=== PATIENT | male | born 1955 | race African-American/Black ===

== ENCOUNTER 2017-02-04 15:29 | Inpatient (IN) | payer OTHER ==
[2017-02-04 17:02] VITALS: BMI 25.5
[2017-02-04] MEDS ORDERED: MENTHOL/PHENOL 1 EACH UD MM PRN (17:35)
[2017-02-04] MEDS ORDERED: MAGNESIUM HYDROX 2400MG/30ML ORAL SUSPENSION 30 ML CUP PO PRN (17:35)
[2017-02-04] MEDS ORDERED: hydrOXYzine PAMOATE 50 MG CAPSULE (FP) PO PRN (17:35)
[2017-02-04] MEDS ORDERED: NICOTINE POLACRILEX 4 MG GUM BC PRN (17:35)
[2017-02-04] MEDS ORDERED: guaiFENesin/D-METHORPHAN HB 10 ML UNIT-DOSE CUPS PO PRN (17:35)
[2017-02-04] MEDS ORDERED: MAGNESIUM CITRATE 300 ML BOTTLE PO PRN (17:35)
[2017-02-04] MEDS ORDERED: chlordiazePOXIDE HCL 25 MG CAPSULE PO ONE (17:35)
[2017-02-04] MEDS ORDERED: LOPERAMIDE HCL 2 MG CAPSULE PO PRN (17:35)
[2017-02-04] MEDS ORDERED: chlordiazePOXIDE HCL 25 MG CAPSULE PO PRN (17:35)
[2017-02-04] MEDS ORDERED: P-EPHED 60MG/TRIPROLIDI 2.5MG TABLET PO PRN (17:35)
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
[2017-02-04] MEDS: NICOTINE 21 MG/24 HOURS TOPICAL PATCH TD SCH (18:46)
[2017-02-04] MEDS: ACETAMINOPHEN 325 MG TABLET (FP) PO PRN (19:12)
[2017-02-04] MEDS: CLOTRIMAZOLE 1% CREAM 15 GM TUBE TP SCH (22:03)
[2017-02-04] MEDS: chlordiazePOXIDE HCL 25 MG CAPSULE PO SCH (22:04)
[2017-02-04] MEDS: MAG HYDROX/AL HYDROX/SIMETH 30 ML UNIT-DOSE CUP PO PRN (22:04)
[2017-02-04] MEDS: THIAMINE HCL 100 MG TABLET (FP) PO SCH (22:04)
[2017-02-04 23:14] LABS: URINE APPEARANCE CLEAR; URINE BILIRUBIN NEGATIVE (NEGATIVE); URINE BLOOD NEGATIVE (NEGATIVE); URINE COLOR LTYELLOW; URINE GLUCOSE (UA) NEGATIVE (NEGATIVE); URINE KETONE NEGATIVE (NEGATIVE); URINE LEUK ESTERASE NEGATIVE (NEGATIVE); URINE NITRITE NEGATIVE (NEGATIVE); URINE PROTEIN NEGATIVE (NEGATIVE); URINE UROBILINOGEN NEGATIVE mg/dL (0.2-1.0)
[2017-02-04] MEDS: diphenhydrAMINE HCL 50 MG CAPSULE PO PRN (23:49)
[2017-02-05] MEDS: chlordiazePOXIDE HCL 25 MG CAPSULE PO SCH ×4 (05:22→22:03)
[2017-02-05] MEDS ORDERED: METHADONE HCL 10 MG TABLET PO SCH (07:45)
[2017-02-05] MEDS ORDERED: METHADONE HCL 10 MG TABLET ONE (07:54)
[2017-02-05] MEDS ORDERED: METHADONE HCL 40 MG DISPERSABLE TABLET ONE (07:54)
[2017-02-05] MEDS: METHADONE 40 MG, METHADONE 30 MG PO SCH (07:55)
[2017-02-05] MEDS: TAMSULOSIN HCL 0.4 MG CAP.ER.24H (FP) PO SCH (08:55)
--- NOTE | 2017-02-05 09:38 | CONSULT ---
[facility] Psychiatric Consult - Data Date of interview: 02/05/17 Admission source: [facility] Identifying data: This is 61 years old male with no psychiatric hospitalization history intoxicated with: Alcohol, Xanax, Cocaine, Nicotine, Methadone Substance Abuse History: - Smoking Cessation. Smoking history: Current every day smoker. Have you smoked in the past 12 months: Yes. Aproximately how many cigarettes per day: 20. Hx Chewing Tobacco Use: No. Initiated information on smoking cessation: Yes. 'Breaking Loose' booklet given: 02/04/17. - Substance & Tx. History. Hx Alcohol Use: Yes. Hx Substance Use: Yes. Substance Use Type : Alcohol, Cocaine, Heroin, Opiates, Prescribed, Tranquilizers. Hx Substance Use Treatment: Yes (MMTP, detoxification [facility] 6 months ago). - Substances Abused. Alprazolam (Xanax). Route: Oral. Frequency: Daily. Amount used: 6-8MG. Age of first use: 32. Date of Last Use: 02/03/17. Alcohol. Route: Oral. Frequency: Daily. Amount used: 1-2 PINTS VODKA. Age of first use: 21. Date of Last Use: 02/04/17. Cocaine. Route: Inhalation. Frequency: 3-6 times per week. Amount used: 1/2 GRAM. Age of first use: 24. Date of Last Use: 01/30/17. Heroin. Route: Inhalation. Frequency: Daily. Age of first use: 22. Date of Last Use: 02/04/17 Medical History: GERD, HepC+, Psychiatric History: Denies past psychiatric history Physical/Sexual Abuse/Trauma History: Denies Additional Comment: Observation. Detox Unit Care Protocol Mental Status Exam - Mental Status Exam Alert and Oriented to: Person Cognitive Function: Fair Patient Appearance: Unkempt Mood: Sad Affect: Flat Patient Behavior: Sedated Speech Pattern: Delayed Voice Loudness: Mildly Soft/Quiet Thought Process: Circumstantial Thought Disorder: Being Controlled Hallucinations: Denies Suicidal Ideation: Denies Homicidal Ideation: Denies Insight/Judgement: Fair Sleep: Difficulty falling asleep Appetite: Fair Muscle strength/Tone: Mild Hypotonicity Gait/Station: Shuffling Additional Comments: Observation. Detox Unit Care Protocol Psychiatric Findings - Problem List ([place] 1, 2,3) (1) Sedative, hypnotic or anxiolytic dependence with withdrawal, uncomplicated Current Visit: Yes Status: Acute (2) Alcohol dependence with uncomplicated withdrawal Current Visit: Yes Status: Chronic (3) Cocaine dependence, uncomplicated Current Visit: Yes Status: Chronic (4) Nicotine dependence Current Visit: Yes Status: Chronic Qualifiers: Nicotine product type: cigarettes (5) Severe opioid dependence on maintenance therapy Current Visit: Yes Status: Chronic (6) Drug-induced mood disorder Current Visit: Yes Status: Suspected - Initial Treatment Plan Initial Treatment Plan: Observation. Detox Unit Care Protocol
[2017-02-05 09:40] LABS: MCHC 32.6 g/dl (32.0-35.9); MEAN CELL VOLUME 101.2 fl (80-96); MEAN PLT VOLUME 10.7 fl (7.5-11.1); PLATELET COUNT 139 K/MM3 (134-434); RDW 13.3 % (11.9-15.9); WHITE BLOOD COUNT 3.7 K/mm3 (4.0-10.0)
[2017-02-05] MEDS: PANTOPRAZOLE 40 MG TABLET (FP) PO SCH (10:02)
[2017-02-05] MEDS: PRENATAL VITAMINS W/ FOLIC ACID TABLET (FP) PO SCH (10:03)
[2017-02-05] MEDS: CLOTRIMAZOLE 1% CREAM 15 GM TUBE TP SCH ×2 (10:04→22:38)
[2017-02-05] MEDS: NICOTINE 21 MG/24 HOURS TOPICAL PATCH TD SCH (10:04)
[2017-02-05 10:19] LABS: ALBUMIN 3.3 g/dl (3.4-5.0); ALK PHOS 79 U/L (45-117); ANION GAP 6 (8-16); BILIRUBIN,TOTAL 0.4 mg/dL (0.2-1.0); CALCIUM 8.9 mg/dL (8.5-10.1); CO2 32 mmol/L (21-32); GLUCOSE,RANDOM 110 mg/dL (74-106); SGOT/AST 26 U/L (15-37); SGPT/ALT 24 U/L (12-78); TOT PROT 7.4 g/dl (6.4-8.2)
--- NOTE | 2017-02-05 11:33 | EKG ---
Test Reason : Blood Pressure : / mmHG Vent. Rate : 057 BPM Atrial Rate : 057 BPM P-R Int : 158 ms QRS Dur : 086 ms QT Int : 466 ms P-R-T Axes : 077 056 046 degrees QTc Int : 453 ms SINUS BRADYCARDIA OTHERWISE NORMAL ECG NO PREVIOUS ECGS AVAILABLE Confirmed by MERCED PARKER MD ([id number]) on 02/05/2017 11:32:36 AM Referred By: Confirmed By:MERCED PARKER MD
--- NOTE | 2017-02-05 11:51 | PN ---
S CIWA - CIWA Score Nausea/Vomitin Muscle Tremors: 4-Moderate,w/Arms Extend Anxiety: 3 Agitation: 1-Slight > Activity Paroxysmal Sweats: No Perspiration Orientation: 0-Oriented Tacttile Disturbances: 2-Mild Itch/Numbness/Burn Auditory Disturbances: 0-None Visual Disturbances: 2-Mild Sensitivity Headache: 4-Moderately Severe CIWA-Ar Total Score: 18 BHS Progress Note (SOAP) Subjective: Tremors, Body Aches, Stomach cramping, H/A, Interrupted sleep. Objective: PT. A & O X 3, OBSERVED AMBULATING ON UNIT. NO ACUTE DISTRESS. PT. DENIES CHEST PAIN. 02/05/17 11:49 Vital Signs Temperature 96.6 F L 02/05/17 09:13 Pulse Rate 55 L 02/05/17 09:13 Respiratory Rate 18 02/05/17 09:13 Blood Pressure 153/83 02/05/17 09:13 O2 Sat by Pulse Oximetry (%) Laboratory Tests 02/04/17 02/05/17 02/05/17 23:00 07:00 07:00 WBC 3.7 L RBC 3.61 L Hgb 11.9 Hct 36.6 MCV 101.2 H MCH 33.0 MCHC 32.6 RDW 13.3 Plt Count 139 MPV 10.7 Sodium 142 Potassium 4.1 Chloride 104 Carbon Dioxide 32 Anion Gap 6 L BUN 19 H Creatinine 1.0 Creat Clearance w eGFR > 60 Random Glucose 110 H Calcium 8.9 Total Bilirubin 0.4 AST 26 ALT 24 Alkaline Phosphatase 79 Total Protein 7.4 Albumin 3.3 L Urine Color Ltyellow Urine Appearance Clear Urine pH 5.0 Urine Protein Negative Urine Glucose (UA) Negative Urine Ketones Negative Urine Blood Negative Urine Nitrite Negative Urine Bilirubin Negative Urine Urobilinogen Negative Ur Leukocyte Esterase Negative LABS NOTED. RPR RESULT PENDING. 02/05/17 11:51 Assessment: 02/05/17 11:49 WITHDRAWAL SYMPTOMS. Plan: CONTINUE DETOX. CONTINUE TO MONITOR BP. INCREASE DAILY PO FLUID INTAKE.
[2017-02-05] MEDS: THIAMINE HCL 100 MG TABLET (FP) PO SCH (22:03)
[2017-02-05] MEDS: ACETAMINOPHEN 325 MG TABLET (FP) PO PRN (22:04)
[2017-02-05] MEDS: diphenhydrAMINE HCL 50 MG CAPSULE PO PRN (22:04)
[2017-02-05] MEDS: MAG HYDROX/AL HYDROX/SIMETH 30 ML UNIT-DOSE CUP PO PRN (23:20)
[2017-02-06] MEDS ORDERED: METHADONE HCL 10 MG TABLET ONE (03:50)
[2017-02-06] MEDS ORDERED: METHADONE HCL 40 MG DISPERSABLE TABLET ONE (03:50)
[2017-02-06] MEDS: chlordiazePOXIDE HCL 25 MG CAPSULE PO SCH ×3 (05:11→18:07)
[2017-02-06] MEDS: METHADONE 40 MG, METHADONE 30 MG PO SCH (05:11)
[2017-02-06] MEDS: MAG HYDROX/AL HYDROX/SIMETH 30 ML UNIT-DOSE CUP PO PRN ×2 (07:33→21:01)
[2017-02-06] MEDS: TAMSULOSIN HCL 0.4 MG CAP.ER.24H (FP) PO SCH (08:52)
--- NOTE | 2017-02-06 09:51 | PN ---
S CIWA - CIWA Score Nausea/Vomitin Muscle Tremors: 4-Moderate,w/Arms Extend Anxiety: 4-Mod. Anxious/Guarded Agitation: 4-Moderately Restless Paroxysmal Sweats: 3 Orientation: 0-Oriented Tacttile Disturbances: 1-Very Mild Itch/Numbness Auditory Disturbances: 0-None Visual Disturbances: 0-None Headache: 1-Very Mild CIWA-Ar Total Score: 20 BHS Progress Note (SOAP) Subjective: nausea, sweats, interrupted sleep, anxiety, tremors Objective: 02/06/17 09:50 Vital Signs - 24 hr 02/05/17 02/05/17 02/06/17 13:37 22:08 06:23 Temperature 97.4 F L 97.0 F L 96.9 F L Pulse Rate 50 L 58 L 59 L Respiratory 18 18 18 Rate Blood Pressure 134/82 137/80 174/88 02/06/17 02/06/17 07:40 09:46 Temperature 98.3 F Pulse Rate 59 L 58 L Respiratory 18 Rate Blood Pressure 138/69 149/83 Laboratory Tests 02/04/17 02/05/17 02/05/17 23:00 07:00 07:00 WBC 3.7 L RBC 3.61 L Hgb 11.9 Hct 36.6 MCV 101.2 H MCH 33.0 MCHC 32.6 RDW 13.3 Plt Count 139 MPV 10.7 Sodium 142 Potassium 4.1 Chloride 104 Carbon Dioxide 32 Anion Gap 6 L BUN 19 H Creatinine 1.0 Creat Clearance w eGFR > 60 Random Glucose 110 H Calcium 8.9 Total Bilirubin 0.4 AST 26 ALT 24 Alkaline Phosphatase 79 Total Protein 7.4 Albumin 3.3 L Urine Color Ltyellow Urine Appearance Clear Urine pH 5.0 Ur Specific [place] <= 1.005 Urine Protein Negative Urine Glucose (UA) Negative Urine Ketones Negative Urine Blood Negative Urine Nitrite Negative Urine Bilirubin Negative Urine Urobilinogen Negative Ur Leukocyte Esterase Negative RPR Titer 02/05/17 07:00 WBC RBC Hgb Hct MCV MCH MCHC RDW Plt Count MPV Sodium Potassium Chloride Carbon Dioxide Anion Gap BUN Creatinine Creat Clearance w eGFR Random Glucose Calcium Total Bilirubin AST ALT Alkaline Phosphatase Total Protein Albumin Urine Color Urine Appearance Urine pH Ur Specific [place] Urine Protein Urine Glucose (UA) Urine Ketones Urine Blood Urine Nitrite Urine Bilirubin Urine Urobilinogen Ur Leukocyte Esterase RPR Titer Nonreactive Assessment: 02/06/17 09:51 withdrawal sx, macrosytosis, hypoalbuminemia, labs noted Plan: cont detox, fluids, encoruage ambualtion
[2017-02-06] MEDS: PANTOPRAZOLE 40 MG TABLET (FP) PO SCH (10:14)
[2017-02-06] MEDS: PRENATAL VITAMINS W/ FOLIC ACID TABLET (FP) PO SCH (10:14)
[2017-02-06] MEDS: CLOTRIMAZOLE 1% CREAM 15 GM TUBE TP SCH ×2 (10:15→23:03)
[2017-02-06] MEDS: NICOTINE 21 MG/24 HOURS TOPICAL PATCH TD SCH (10:16)
[2017-02-06] MEDS: ACETAMINOPHEN 325 MG TABLET (FP) PO PRN (21:00)
[2017-02-06] MEDS: THIAMINE HCL 100 MG TABLET (FP) PO SCH (23:03)
[2017-02-06] MEDS: chlordiazePOXIDE 5 MG CAPSULE PO SCH (23:04)
[2017-02-07] MEDS: diphenhydrAMINE HCL 50 MG CAPSULE PO PRN ×2 (00:26→22:11)
[2017-02-07] MEDS ORDERED: METHADONE HCL 10 MG TABLET ONE (04:51)
[2017-02-07] MEDS ORDERED: METHADONE HCL 40 MG DISPERSABLE TABLET ONE (04:51)
[2017-02-07] MEDS: chlordiazePOXIDE 5 MG CAPSULE PO SCH ×3 (05:45→17:24)
[2017-02-07] MEDS: METHADONE 40 MG, METHADONE 30 MG PO SCH (05:45)
[2017-02-07] MEDS ORDERED: cloNIDine HCL 0.1 MG TABLET PO ONE ×2 (06:29→14:17)
[2017-02-07] MEDS: TAMSULOSIN HCL 0.4 MG CAP.ER.24H (FP) PO SCH (07:49)
[2017-02-07] MEDS: PANTOPRAZOLE 40 MG TABLET (FP) PO SCH (10:27)
[2017-02-07] MEDS: CLOTRIMAZOLE 1% CREAM 15 GM TUBE TP SCH ×2 (10:27→22:10)
[2017-02-07] MEDS: PRENATAL VITAMINS W/ FOLIC ACID TABLET (FP) PO SCH (10:27)
[2017-02-07] MEDS: NICOTINE 21 MG/24 HOURS TOPICAL PATCH TD SCH (10:27)
--- NOTE | 2017-02-07 14:17 | PN ---
BHS Progress Note (SOAP) Subjective: Sweating, Stomach Cramping, Diarrhea, H/A, Interrupted sleep. Objective: PT. A & O X 1 (DISORIENTED ABOUT DAY / DATE AND ABOUT CURRENT LOCATION). PT. OBSERVED AMBULATING ON UNIT. NO ACUTE DISTRESS. 02/07/17 14:14 Vital Signs Temperature 98.0 F 02/07/17 14:07 Pulse Rate 60 02/07/17 14:07 Respiratory Rate 16 02/07/17 14:07 Blood Pressure 137/85 02/07/17 14:07 O2 Sat by Pulse Oximetry (%) Laboratory Tests 02/04/17 02/05/17 02/05/17 23:00 07:00 07:00 WBC 3.7 L RBC 3.61 L Hgb 11.9 Hct 36.6 MCV 101.2 H MCH 33.0 MCHC 32.6 RDW 13.3 Plt Count 139 MPV 10.7 Sodium 142 Potassium 4.1 Chloride 104 Carbon Dioxide 32 Anion Gap 6 L BUN 19 H Creatinine 1.0 Creat Clearance w eGFR > 60 Random Glucose 110 H Calcium 8.9 Total Bilirubin 0.4 AST 26 ALT 24 Alkaline Phosphatase 79 Total Protein 7.4 Albumin 3.3 L Urine Color Ltyellow Urine Appearance Clear Urine pH 5.0 Ur Specific [place] <= 1.005 Urine Protein Negative Urine Glucose (UA) Negative Urine Ketones Negative Urine Blood Negative Urine Nitrite Negative Urine Bilirubin Negative Urine Urobilinogen Negative Ur Leukocyte Esterase Negative RPR Titer 02/05/17 07:00 WBC RBC Hgb Hct MCV MCH MCHC RDW Plt Count MPV Sodium Potassium Chloride Carbon Dioxide Anion Gap BUN Creatinine Creat Clearance w eGFR Random Glucose Calcium Total Bilirubin AST ALT Alkaline Phosphatase Total Protein Albumin Urine Color Urine Appearance Urine pH Ur Specific [place] Urine Protein Urine Glucose (UA) Urine Ketones Urine Blood Urine Nitrite Urine Bilirubin Urine Urobilinogen Ur Leukocyte Esterase RPR Titer Nonreactive LABS NOTED. Assessment: 02/07/17 14:16 WITHDRAWAL SYMPTOMS. Plan: CONTINUE DETOX. CLONIDINE, 0.1 MG PO FOR ELEVATED BP AND FOR DETOX SYMPTOMS. PRN IMMODIUM FOR DIARRHEA.
[2017-02-07] MEDS: chlordiazePOXIDE HCL 10 MG CAPSULE PO SCH (22:11)
[2017-02-07] MEDS: THIAMINE HCL 100 MG TABLET (FP) PO SCH (22:11)
[2017-02-08] MEDS ORDERED: METHADONE HCL 40 MG DISPERSABLE TABLET ONE (04:05)
[2017-02-08] MEDS ORDERED: METHADONE HCL 10 MG TABLET ONE (04:05)
[2017-02-08] MEDS: METHADONE 40 MG, METHADONE 30 MG PO SCH (05:38)
[2017-02-08] MEDS: chlordiazePOXIDE HCL 10 MG CAPSULE PO SCH (05:38)
[2017-02-08 06:10] VITALS: TEMP 96.5
[2017-02-08 07:48] VITALS: BP 124/75; PULSE 62
[2017-02-08] MEDS: TAMSULOSIN HCL 0.4 MG CAP.ER.24H (FP) PO SCH (10:50)
[2017-02-08] MEDS: PRENATAL VITAMINS W/ FOLIC ACID TABLET (FP) PO SCH (10:50)
[2017-02-08] MEDS: NICOTINE 21 MG/24 HOURS TOPICAL PATCH TD SCH (10:50)
[2017-02-08] MEDS: PANTOPRAZOLE 40 MG TABLET (FP) PO SCH (10:50)
[2017-02-08] MEDS: CLOTRIMAZOLE 1% CREAM 15 GM TUBE TP SCH (10:50)
--- NOTE | 2017-02-08 18:27 | DS ---
[facility] Summary Admission Date: 02/04/17 Discharge Date: 02/08/17 - History Present History: Alcohol Dependence, Cocaine Dependence, Opioid Dependence, Sedative Dependence Additional Comments: PATIENT ADVISED TO CONSIDER LOCAL OUTPATIENT 12-STEP / NA / AA OUTPATIENT PROGRAMS FOR FOLLOW-UP AFTERCARE. PATIENT DISCHARGED FROM UNIT IN STABLE MEDICAL CONDITION. Pertinent Past History: Hep C, G.E.R.D., Athlete's Foot. - Physical Exam Results Vital Signs: Vital Signs Temperature 96.5 F L 02/08/17 06:09 Pulse Rate 62 02/08/17 07:47 Respiratory Rate 18 02/08/17 06:09 Blood Pressure 124/75 02/08/17 07:47 O2 Sat by Pulse Oximetry (%) Pertinent Admission Physical Exam Findings: WITHDRAWAL SYMPTOMS. Laboratory Tests 02/04/17 02/05/17 02/05/17 23:00 07:00 07:00 WBC 3.7 L RBC 3.61 L Hgb 11.9 Hct 36.6 MCV 101.2 H MCH 33.0 MCHC 32.6 RDW 13.3 Plt Count 139 MPV 10.7 Sodium 142 Potassium 4.1 Chloride 104 Carbon Dioxide 32 Anion Gap 6 L BUN 19 H Creatinine 1.0 Creat Clearance w eGFR > 60 Random Glucose 110 H Calcium 8.9 Total Bilirubin 0.4 AST 26 ALT 24 Alkaline Phosphatase 79 Total Protein 7.4 Albumin 3.3 L Urine Color Ltyellow Urine Appearance Clear Urine pH 5.0 Ur Specific [place] <= 1.005 Urine Protein Negative Urine Glucose (UA) Negative Urine Ketones Negative Urine Blood Negative Urine Nitrite Negative Urine Bilirubin Negative Urine Urobilinogen Negative Ur Leukocyte Esterase Negative RPR Titer 02/05/17 07:00 WBC RBC Hgb Hct MCV MCH MCHC RDW Plt Count MPV Sodium Potassium Chloride Carbon Dioxide Anion Gap BUN Creatinine Creat Clearance w eGFR Random Glucose Calcium Total Bilirubin AST ALT Alkaline Phosphatase Total Protein Albumin Urine Color Urine Appearance Urine pH Ur Specific [place] Urine Protein Urine Glucose (UA) Urine Ketones Urine Blood Urine Nitrite Urine Bilirubin Urine Urobilinogen Ur Leukocyte Esterase RPR Titer Nonreactive LABS NOTED. - Treatment Hospital Course: Detox Protocol Followed, Detoxed Safely, Responded well, Discharged Condition Good Patient has Accepted a Rehab Referral to: PT. ADVISED TO CONSIDER 12-STEP/NA/AA OUTPATIENT PROGRAMS FOR AFTERCARE. - Medication Discharge Medications: Ambulatory Orders Clotrimazole 15 gm TP BID 02/04/17 Esomeprazole Magnesium 40 mg PO DAILY 02/04/17 Multivitamins [Tab-A-Vit -] 1 tab PO DAILY 02/04/17 Tamsulosin HCl [Flomax] 2 cap PO DAILY 02/04/17 - Diagnosis (1) Sedative, hypnotic or anxiolytic dependence with withdrawal, uncomplicated Status: Acute (2) Alcohol dependence with uncomplicated withdrawal Status: Acute (3) Athletes foot Status: Chronic Qualifiers: Laterality: unspecified laterality Qualified Code(s): B35.3 - Tinea pedis (4) Cocaine dependence, uncomplicated Status: Chronic (5) GERD (gastroesophageal reflux disease) Status: Chronic Qualifiers: Esophagitis presence: esophagitis presence not specified Qualified Code(s): K21.9 - Gastro-esophageal reflux disease without esophagitis (6) Nicotine dependence Status: Chronic Qualifiers: Nicotine product type: cigarettes Substance use status: uncomplicated Qualified Code(s): F17.210 - Nicotine dependence, cigarettes, uncomplicated (7) Severe opioid dependence on maintenance therapy Status: Chronic (8) Drug-induced mood disorder Status: Suspected - AMA Did Patient Leave Against Medical Advice: No
== END 2017-02-08 09:57 | disposition home or self-care (01) | DRG 773 ==
LOC: EDBD → YASAS 15:29 → Y3N 17:54
PROVIDERS: ADMIT Internal Medicine Addiction Medicine; ATTEND Internal Medicine Addiction Medicine
PROC: HZ2ZZZZ Detoxification Services for Substance Abuse Treatment (ICD-10-PCS; principal; 2017-02-04)
DX: F13.230 Sedative, hypnotic or anxiolytic dependence with withdrawal, uncomplicated (principal); F11.20 Opioid dependence, uncomplicated; F10.230 Alcohol dependence with withdrawal, uncomplicated; F14.20 Cocaine dependence, uncomplicated; F17.210 Nicotine dependence, cigarettes, uncomplicated; F19.24 Other psychoactive substance dependence with psychoactive substance-induced mood disorder; K21.9 Gastro-esophageal reflux disease without esophagitis; B35.3 Tinea pedis; D75.89 Other specified diseases of blood and blood-forming organs; E88.09 Other disorders of plasma-protein metabolism, not elsewhere classified; Z86.79 Personal history of other diseases of the circulatory system
CPT/HCPCS: 36415; 80053; 81003; 85027; 86593; 93005; 93010

== ENCOUNTER 2019-05-24 14:45 | Inpatient (IN) | payer OTHER ==
[2019-05-24 20:27] VITALS: BMI 24.1
--- NOTE | 2019-05-24 21:47 | HP ---
CIWA Score Nausea/Vomitin-No Nausea/No Vomiting Muscle Tremors: 1-None Visible, but [place] Anxiety: 4-Mod. Anxious/Guarded Agitation: 4-Moderately Restless Paroxysmal Sweats: 3 Orientation: 0-Oriented Tacttile Disturbances: 3-Moderate Itch/Numb/Burn (itching) Auditory Disturbances: 0-None Visual Disturbances: 1-Very Mild Sensitivity (to light) Headache: 0-None Present CIWA-Ar Total Score: 16 - Admission Criteria OASAS Guidelines: Admission for Medically Managed Detox: Requires at least one of the followin. CIWA greater than 12 2. Seizures within the past 24 hours 3. Delirium tremens within the past 24 hours 4. Hallucinations within the past 24 hours 5. Acute intervention needed for co occurring medical disorder 6. Acute intervention needed for co occurring psychiatric disorder 7. Severe withdrawal that cannot be handled at a lower level of care (continued vomiting, continued diarrhea, abnormal vital signs) requiring intravenous medication and/or fluids 8. Patient presents the following: CIWA greater than 12, Acute intervention needed for co-occurring med or psych disorder (b/p 180/100) Admission Criteria Met: Admission criteria met Admitting History and Physical - Smoking History Smoking history: Current every day smoker Have you smoked in the past 12 months: Yes Aproximately how many cigarettes per day: 20 - Alcohol/Substance Use Hx Alcohol Use: Yes Admission ROS [facility] Chief Complaint: seeking alcohol detox Allergies/Adverse Reactions: Allergies Allergy/AdvReac Type Severity Reaction Status Date / Time lactose AdvReac Verified 05/24/19 20:10 History of Present Illness: HERE FOR ALCOHOL DETOX. CLIENT IS SELF REFERRED. KNOWN TO PROGRAM. LAST HERE 2016. MAINTAINED SOBRIETY FOR ABOUT 6 MONTHS PRIOR TO RELAPSING. DENIES ANY SIGNIFICANT PERIOD OF CLEAN TIME SINCE. PRESENTS TODAY WITH C/O WITHDRAWAL SX' S. HE REPORTS DAILY ALCOHOL INTAKE. LAST DRINK THIS MORNING. 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 REPORTS HX/O SEIZURES LAST EPISODE 01/2019 R/T ALCOHOL AND BENZO WITHDRAWAL. CLIENT REPORTS BENZO ABUSE WELL. REPORTS DAILY USE ON NON RX XANAX. LIVES ALONE, UNEMPLOYED, DENIES LEGALS Exam Limitations: No Limitations - Ebola screening Have you traveled outside of the country in the last 21 days: No (N) Have you had contact with anyone from an Ebola affected area: No Have you been sick,other than usual withdrawal symptoms: No Do you have a fever: No - Review of Systems Constitutional: Chills, Loss of Appetite, Malaise, Night Sweats, Changes in sleep EENT: reports: Other (MISSING TEETH) Respiratory: reports: No Symptoms reported Cardiac: reports: No Symptoms Reported GI: reports: Diarrhea, Nausea, Poor Appetite, Abdominal cramping : reports: Other (BPH WITH SLOW STREAM) Musculoskeletal: reports: Neck Pain (CHRONIC) Integumentary: reports: No Symptoms Reported Neuro: reports: Tremors, Dizziness Endocrine: reports: No Symptoms Reported Hematology: reports: No Symptoms Reported Psychiatric: reports: Orientated x3, Anxious, Depressed (DENIES SI) Other Systems: Reviewed and Negative Patient History - Patient Medical History Hx Anemia: No Hx Asthma: No Hx Chronic Obstructive Pulmonary Disease (COPD): No Hx Cancer: No Hx Cardiac Disorders: No Hx Congestive Heart Failure: No Hx Hypertension: No Hx Hypercholesterolemia: No Hx Pacemaker: No HX Cerebrovascular Accident: No Hx Seizures: No Hx Dementia: No Hx Diabetes: No Hx Gastrointestinal Disorders: Yes (GERD) Hx Liver Disease: Yes (hep c treated and cleared virus 2015) Hx Genitourinary Disorders: No Hx Sexually Transmitted Disorders: No Hx Renal Disease (ESRD): No Hx Thyroid Disease: No Hx Human Immunodeficiency Virus (HIV): No Hx Hepatitis C: Yes (treated and cleared) Hx Depression: No Hx Suicide Attempt: No Hx Bipolar Disorder: No Hx Schizophrenia: No Other Medical History: DENIES - Patient Surgical History Past Surgical History: No - PPD History Previous Implant?: Yes Documented Results: Negative w/proof Implanted On Prior [facility] Admission?: Yes Date: 02/06/17 Results: 0MM PPD to be Administered?: Yes - Smoking Cessation Smoking history: Current every day smoker Have you smoked in the past 12 months: Yes Aproximately how many cigarettes per day: 20 Hx Chewing Tobacco Use: No Initiated information on smoking cessation: Yes 'Breaking Loose' booklet given: 05/24/19 - Substance & Tx. History Hx Alcohol Use: Yes Hx Substance Use: Yes Substance Use Type: Alcohol, Tranquilizers Hx Substance Use Treatment: Yes ([facility]) - Substances abused Alcohol Substance route: Oral Frequency: Daily Amount used: 1qt of vodka Age of first use: 24 Date of last use: 05/24/19 Alprazolam (Xanax) Substance route: Oral Frequency: Daily Amount used: 3-5 bars/day Age of first use: 27 Date of last use: 05/23/19 Admission Physical Exam [facility] - Vital Signs Vital Signs: Vital Signs - 24 hr 05/24/19 20:22 Temperature 98.7 F Pulse Rate 79 Respiratory 18 Rate Blood Pressure 180/100 H - Physical General Appearance: Yes: Mild Distress, Tremorous (felt), Anxious HEENTM: Yes: EOMI, Normocephalic, Normal Voice, GRACIELA, Pharynx Normal, Other ( dentures) Respiratory: Yes: Chest Non-Tender, Lungs Clear, Normal Breath Sounds, No Respiratory Distress, No Accessory Muscle Use Neck: Yes: No masses,lesions,Nodules, Supple, Trachea in good position Breast: Yes: Breasts Symetrical Cardiology: Yes: Regular Rhythm, Regular Rate, S1, S2 Abdominal: Yes: Normal Bowel Sounds, Non Tender, Soft Genitourinary: Yes: Other (slow stream on flomax) Back: Yes: Normal Inspection Musculoskeletal: Yes: full range of Motion, Gait Steady Extremities: Yes: Normal Capillary Refill, Normal Range of Motion, Non-Tender, Tremors Neurological: Yes: Fully Oriented, Alert, Motor Strength 5/5 Integumentary: Yes: Dry, Warm Lymphatic: Yes: Within Normal Limits - Diagnostic (1) Alcohol dependence with uncomplicated withdrawal Current Visit: Yes Status: Acute (2) Sedative, hypnotic or anxiolytic dependence with withdrawal, uncomplicated Current Visit: Yes Status: Acute (3) Cocaine dependence, uncomplicated Current Visit: Yes Status: Acute (4) GERD (gastroesophageal reflux disease) Current Visit: Yes Status: Chronic Qualifiers: Esophagitis presence: esophagitis presence not specified Qualified Code(s) : K21.9 - Gastro-esophageal reflux disease without esophagitis (5) Nicotine dependence Current Visit: Yes Status: Chronic Qualifiers: Nicotine product type: cigarettes Substance use status: uncomplicated Qualified Code(s): F17.210 - Nicotine dependence, cigarettes, uncomplicated (6) Drug-induced mood disorder Current Visit: Yes Status: Acute (7) Depressed affect Current Visit: Yes Status: Acute (8) BPH (benign prostatic hyperplasia) Current Visit: Yes Status: Acute (9) HIV (human immunodeficiency virus infection) Current Visit: Yes Status: Acute Cleared for Admission [facility] - Detox or Rehab [facility] Level of Care: Medically Managed Detox Regimen/Protocol: Valium Claeared for Rehab Admission: No Breathalyzer - Breathalyzer Breathalyzer: 0.019 Urine Drug Screen - Test Device Lot number: [id number] Expiration date: 01/05/21 - Control Is test valid?: Yes - Results Drug screen NEGATIVE: No Urine drug screen results: PHILL-Cocaine, MTD-Methadone, BZO-Benzodiazepines Inpatient Rehab Admission - Rehab Decision to Admit Inpatient rehab admission?: No
[2019-05-24] MEDS ORDERED: METHOCARBAMOL 500 MG TABLET PO PRN (21:54)
[2019-05-24] MEDS ORDERED: MAGNESIUM CITRATE 300 ML BOTTLE PO PRN (21:54)
[2019-05-24] MEDS ORDERED: DICYCLOMINE HCL 10 MG CAPSULE PO PRN (21:54)
[2019-05-24] MEDS ORDERED: ONDANSETRON *ODT* 4 MG TABLET SL PRN (21:54)
[2019-05-24] MEDS ORDERED: ACETAMINOPHEN 325 MG TABLET (FP) PO PRN ×2 (21:54)
[2019-05-24] MEDS ORDERED: P-EPHED 60MG/TRIPROLIDI 2.5MG TABLET PO PRN (21:54)
[2019-05-24] MEDS ORDERED: IBUPROFEN 400 MG TABLET (FP) PO PRN (21:54)
[2019-05-24] MEDS ORDERED: guaiFENesin 200 MG/10 ML 10 ML UNIT-DOSE CUPS PO PRN (21:54)
[2019-05-24] MEDS ORDERED: MAG HYDROX/AL HYDROX/SIMETH 30 ML UNIT-DOSE CUP PO PRN (21:54)
[2019-05-24] MEDS ORDERED: hydrOXYzine PAMOATE 25 MG CAPSULE (FP) PO PRN (21:54)
[2019-05-24] MEDS ORDERED: diazePAM 5 MG TABLET PO PRN (21:54)
[2019-05-24] MEDS ORDERED: MAGNESIUM HYDROX 2400MG/30ML ORAL SUSPENSION 30 ML CUP PO PRN (21:54)
[2019-05-24] MEDS ORDERED: NICOTINE POLACRILEX 2 MG GUM BUC PRN (21:54)
[2019-05-24] MEDS ORDERED: MENTHOL/PHENOL 1 EACH UD MM PRN (21:54)
[2019-05-24] MEDS ORDERED: BISMUTH SUBSALICYLATE 524 MG/30 ML UD PO PRN (21:54)
[2019-05-24] MEDS: diazePAM 5 MG TABLET PO SCH (23:35)
[2019-05-24] MEDS: THIAMINE HCL 100 MG TABLET (FP) PO SCH (23:35)
[2019-05-24] MEDS: MELATONIN 5 MG TABLETS PO PRN (23:36)
[2019-05-25] MEDS: diazePAM 5 MG TABLET PO SCH ×3 (05:37→22:15)
[2019-05-25] MEDS ORDERED: METHADONE HCL 10 MG TABLET PO SCH (07:00)
[2019-05-25] MEDS ORDERED: METHADONE HCL 10 MG TABLET ONE (08:49)
[2019-05-25] MEDS ORDERED: METHADONE HCL 40 MG DISPERSABLE TABLET ONE (08:49)
[2019-05-25] MEDS: TAMSULOSIN HCL 0.4 MG CAP PO SCH (09:49)
[2019-05-25] MEDS: METHADONE 80 MG, METHADONE 10 MG PO SCH (09:49)
[2019-05-25] MEDS: ENALAPRIL MALEATE 10 MG TABLET (FP) PO SCH (09:49)
[2019-05-25] MEDS: PANTOPRAZOLE 40 MG TABLET (FP) PO SCH (09:49)
[2019-05-25] MEDS: PRENATAL VITAMINS W/ FOLIC ACID TABLET (FP) PO SCH (09:49)
[2019-05-25 10:07] LABS: HEMATOCRIT 32.1 % (35.4-49); HEMOGLOBIN 10.7 GM/dL (11.7-16.9); MCH 34.3 pg (25.7-33.7); MCHC 33.4 g/dl (32.0-35.9); MEAN CELL VOLUME 102.7 fl (80-96); MEAN PLT VOLUME 9.4 fl (7.5-11.1); PLATELET COUNT 154 K/MM3 (134-434); RBC 3.13 M/mm3 (4.00-5.60); RDW 13.2 % (11.9-15.9); WHITE BLOOD COUNT 2.8 K/mm3 (4.0-10.0)
[2019-05-25 10:23] LABS: ALBUMIN 3.2 g/dl (3.4-5.0); BILIRUBIN,TOTAL 0.4 mg/dL (0.2-1); CALCIUM 8.4 mg/dL (8.5-10.1); CREATININE 0.9 mg/dL (0.55-1.3); POTASSIUM 3.2 mmol/L (3.5-5.1); TOT PROT 6.4 g/dl (6.4-8.2)
[2019-05-25] MEDS: [UNRECOGNIZED DRUG - OTHER] PO SCH (11:03)
[2019-05-25] MEDS: NICOTINE 21 MG/24 HOURS TOPICAL PATCH TD SCH (11:04)
[2019-05-25] MEDS ORDERED: POTASSIUM CHLORIDE ORAL LIQUID 20 MEQ/15 ML PO ONE (11:54)
--- NOTE | 2019-05-25 11:56 | PN ---
S CIWA - CIWA Score Nausea/Vomitin-Mild Nausea/No Vomiting Muscle Tremors: 2 Anxiety: 3 Agitation: 2 Paroxysmal Sweats: 2 Orientation: 0-Oriented Tacttile Disturbances: 1-Very Mild Itch/Numbness Auditory Disturbances: 0-None Visual Disturbances: 0-None Headache: 1-Very Mild CIWA-Ar Total Score: 12 [facility] Progress Note (SOAP) Subjective: 63 years old male admitted on 05/24/19 for alcohol and benzo withdrawal sx management treating with valium detox regimen ate breakfast ambulating on hallway social with peers in day room Objective: 05/25/19 11:51 Vital Signs Temperature 98.4 F 05/25/19 09:18 Pulse Rate 79 05/25/19 09:18 Respiratory Rate 18 05/25/19 09:18 Blood Pressure 119/75 05/25/19 09:18 O2 Sat by Pulse Oximetry (%) Laboratory Last Values WBC 2.8 K/mm3 (4.0-10.0) L 05/25/19 07:50 RBC 3.13 M/mm3 (4.00-5.60) L 05/25/19 07:50 Hgb 10.7 GM/dL (11.7-16.9) L 05/25/19 07:50 Hct 32.1 % (35.4-49) L 05/25/19 07:50 MCV 102.7 fl (80-96) H 05/25/19 07:50 MCH 34.3 pg (25.7-33.7) H 05/25/19 07:50 MCHC 33.4 g/dl (32.0-35.9) 05/25/19 07:50 RDW 13.2 % (11.9-15.9) 05/25/19 07:50 Plt Count 154 K/MM3 (134-434) 05/25/19 07:50 MPV 9.4 fl (7.5-11.1) D 05/25/19 07:50 Sodium 141 mmol/L (136-145) 05/25/19 07:50 Potassium 3.2 mmol/L (3.5-5.1) L 05/25/19 07:50 Chloride 105 mmol/L (98-107) 05/25/19 07:50 Carbon Dioxide 32 mmol/L (21-32) 05/25/19 07:50 Anion Gap 4 MMOL/L (8-16) L 05/25/19 07:50 BUN 20.0 mg/dL (7-18) H 05/25/19 07:50 Creatinine 0.9 mg/dL (0.55-1.3) 05/25/19 07:50 Est GFR (CKD-EPI)AfAm 106.46 05/25/19 07:50 Est GFR (CKD-EPI)NonAf 91.86 05/25/19 07:50 Random Glucose 84 mg/dL (74-106) 05/25/19 07:50 Calcium 8.4 mg/dL (8.5-10.1) L 05/25/19 07:50 Total Bilirubin 0.4 mg/dL (0.2-1) 05/25/19 07:50 AST 22 U/L (15-37) 05/25/19 07:50 ALT 16 U/L (13-61) 05/25/19 07:50 Alkaline Phosphatase 72 U/L (45-117) 05/25/19 07:50 Total Protein 6.4 g/dl (6.4-8.2) 05/25/19 07:50 Albumin 3.2 g/dl (3.4-5.0) L 05/25/19 07:50 RPR Titer Nonreactive (NONREACTIVE) 05/25/19 07:50 lab noted low wbc and K+ K+ supplement repeat K+ long history of HIV treated with ARC adn low wbc 05/25/19 11:56 Assessment: 05/25/19 11:56 alcohol and benzo withdrawal Plan: valium regimen
--- NOTE | 2019-05-25 12:25 | EKG ---
Test Reason : Blood Pressure : / mmHG Vent. Rate : 060 BPM Atrial Rate : 060 BPM P-R Int : 156 ms QRS Dur : 092 ms QT Int : 472 ms P-R-T Axes : 071 033 036 degrees QTc Int : 472 ms SINUS RHYTHM WITH OCCASIONAL PREMATURE VENTRICULAR COMPLEXES MINIMAL VOLTAGE CRITERIA FOR LVH, MAY BE NORMAL VARIANT BORDERLINE ECG WHEN COMPARED WITH ECG OF 04-FEB-2017 17:54, PREMATURE VENTRICULAR COMPLEXES ARE NOW PRESENT Confirmed by CASA YOUSSEF, AMERICA ([id number]) on 05/25/2019 12:24:50 PM Referred By: DR LUKE Confirmed By:AMERICA CORMIER MD
--- NOTE | 2019-05-25 16:40 | CONSULT ---
[facility] Psychiatric Consult - Data Date of interview: 05/25/19 Admission source: [facility] Identifying data: Readmission to [facility] for this 63 y/o AA male self- referred for detoxification. KELSEY issues :: heroin, alcohol, benzodiazepines, cocaine. Interviewed at [address] [place] [address]. Patient is , father of one, domiciled, unemployed and supported on SSI benefits. Substance Abuse History: Discussed with the patient. Details in current [facility] report as follows : Smoking history: Current every day smoker. Have you smoked in the past 12 months: Yes. Aproximately how many cigarettes per day: 20. Hx Chewing Tobacco Use: No. Initiated information on smoking cessation: Yes. ' Breaking Loose' booklet given: 05/24/19. - Substance & Tx. History. Hx Alcohol Use: Yes. Hx Substance Use: Yes. Substance Use Type: Alcohol, Tranquilizers. Hx Substance Use Treatment: Yes ([facility] - Substances abused. * * Alcohol. Substance route: Oral. Frequency: Daily. Amount used: 1qt of vodka. Age of first use: 24. Date of last use: 05/24/19. Alprazolam (Xanax ). Substance route: Oral. Frequency: Daily. Amount used: 3-5 bars/day. Age of first use: 27. Date of last use: 05/23/19 Medical History: Medical profile is remarkable for HIV infection since 1982 (on ART medications), GERD, hepatitis C (treated) and benign prostatic hyperplasia ( BPH). Psychiatric History: Patient denies history of psychiatric hospitalizations, OPD care or suicide attempts. Physical/Sexual Abuse/Trauma History: Patient denies. Additional Comment: Urine drug screen results: PHILL-Cocaine, MTD-Methadone, BZO- Benzodiazepines. Noted. Mental Status Exam - Mental Status Exam Alert and Oriented to: Time, Place, Person Cognitive Function: Good Patient Appearance: Well Groomed Mood: Nervous, Withdrawn, Hopeful Affect: Appropriate, Normal Range Patient Behavior: Fatigued, Appropriate, Cooperative Speech Pattern: Clear, Appropriate Voice Loudness: Normal Thought Process: Intact, Goal Oriented Thought Disorder: Not Present Hallucinations: Denies Suicidal Ideation: Denies Homicidal Ideation: Denies Insight/Judgement: Poor Sleep: Poorly, Difficulty falling asleep Appetite: Good Muscle strength/Tone: Normal Gait/Station: Normal Psychiatric Findings - Problem List ([place] 1, 2,3) (1) Alcohol dependence with uncomplicated withdrawal Current Visit: Yes Status: Acute (2) Sedative, hypnotic or anxiolytic dependence with withdrawal, uncomplicated Current Visit: Yes Status: Acute (3) Opioid dependence on agonist therapy Current Visit: Yes Status: Chronic (4) Cocaine dependence, uncomplicated Current Visit: Yes Status: Chronic (5) Nicotine dependence Current Visit: Yes Status: Chronic Qualifiers: Nicotine product type: cigarettes Substance use status: uncomplicated Qualified Code(s): F17.210 - Nicotine dependence, cigarettes, uncomplicated (6) Substance induced mood disorder Current Visit: Yes Status: Chronic (7) Insomnia Current Visit: Yes Status: Chronic - Initial Treatment Plan Initial Treatment Plan: Psychoeducation. Support. Sleep hygiene. Detoxification in progress. NA meetings. Insomnia is addressed with melatonin at bedtime. Side effects/benefits reviewed with patient. Consent (verbal) granted to MD. Patel.
[2019-05-25] MEDS: THIAMINE HCL 100 MG TABLET (FP) PO SCH (22:15)
[2019-05-25] MEDS: MELATONIN 5 MG TABLETS PO PRN (22:16)
[2019-05-26] MEDS ORDERED: METHADONE HCL 10 MG TABLET ONE (04:07)
[2019-05-26] MEDS ORDERED: METHADONE HCL 40 MG DISPERSABLE TABLET ONE (04:08)
[2019-05-26] MEDS: diazePAM 5 MG TABLET PO SCH ×2 (05:59→17:31)
[2019-05-26] MEDS: METHADONE 80 MG, METHADONE 10 MG PO SCH (05:59)
[2019-05-26] MEDS: [UNRECOGNIZED DRUG - OTHER] PO SCH (10:37)
[2019-05-26] MEDS: NICOTINE 21 MG/24 HOURS TOPICAL PATCH TD SCH (10:38)
[2019-05-26] MEDS: PANTOPRAZOLE 40 MG TABLET (FP) PO SCH (10:38)
[2019-05-26] MEDS: TAMSULOSIN HCL 0.4 MG CAP PO SCH (10:38)
[2019-05-26] MEDS: ENALAPRIL MALEATE 10 MG TABLET (FP) PO SCH ×2 (10:38→22:09)
[2019-05-26] MEDS: PRENATAL VITAMINS W/ FOLIC ACID TABLET (FP) PO SCH (10:38)
--- NOTE | 2019-05-26 11:19 | PN ---
S CIWA - CIWA Score Nausea/Vomitin-Mild Nausea/No Vomiting Muscle Tremors: 2 Anxiety: 2 Agitation: 2 Paroxysmal Sweats: 1-Minimal Palms Moist Orientation: 0-Oriented Tacttile Disturbances: 0-None Auditory Disturbances: 0-None Visual Disturbances: 0-None Headache: 1-Very Mild CIWA-Ar Total Score: 9 S Progress Note (SOAP) Subjective: 63 years old male admitted on 05/24/19 for alcohol and benzo withdrawaL sx management treating with valium detox regimen feeling better today less tremor slept through the night Objective: 05/26/19 11:15 Vital Signs Temperature 96.8 F L 05/26/19 09:15 Pulse Rate 70 05/26/19 09:15 Respiratory Rate 18 05/26/19 09:15 Blood Pressure 145/80 05/26/19 09:15 O2 Sat by Pulse Oximetry (%) Laboratory Last Values WBC 2.8 K/mm3 (4.0-10.0) L 05/25/19 07:50 RBC 3.13 M/mm3 (4.00-5.60) L 05/25/19 07:50 Hgb 10.7 GM/dL (11.7-16.9) L 05/25/19 07:50 Hct 32.1 % (35.4-49) L 05/25/19 07:50 MCV 102.7 fl (80-96) H 05/25/19 07:50 MCH 34.3 pg (25.7-33.7) H 05/25/19 07:50 MCHC 33.4 g/dl (32.0-35.9) 05/25/19 07:50 RDW 13.2 % (11.9-15.9) 05/25/19 07:50 Plt Count 154 K/MM3 (134-434) 05/25/19 07:50 MPV 9.4 fl (7.5-11.1) D 05/25/19 07:50 Sodium 141 mmol/L (136-145) 05/25/19 07:50 Potassium 4.0 mmol/L (3.5-5.1) 05/26/19 08:00 Chloride 105 mmol/L (98-107) 05/25/19 07:50 Carbon Dioxide 32 mmol/L (21-32) 05/25/19 07:50 Anion Gap 4 MMOL/L (8-16) L 05/25/19 07:50 BUN 20.0 mg/dL (7-18) H 05/25/19 07:50 Creatinine 0.9 mg/dL (0.55-1.3) 05/25/19 07:50 Est GFR (CKD-EPI)AfAm 106.46 05/25/19 07:50 Est GFR (CKD-EPI)NonAf 91.86 05/25/19 07:50 Random Glucose 84 mg/dL (74-106) 05/25/19 07:50 Calcium 8.4 mg/dL (8.5-10.1) L 05/25/19 07:50 Total Bilirubin 0.4 mg/dL (0.2-1) 05/25/19 07:50 AST 22 U/L (15-37) 05/25/19 07:50 ALT 16 U/L (13-61) 05/25/19 07:50 Alkaline Phosphatase 72 U/L (45-117) 05/25/19 07:50 Total Protein 6.4 g/dl (6.4-8.2) 05/25/19 07:50 Albumin 3.2 g/dl (3.4-5.0) L 05/25/19 07:50 RPR Titer Nonreactive (NONREACTIVE) 05/25/19 07:50 lab noted 05/26/19 11:22 bp elevation increase lisinopril 10 mg po bid Assessment: 05/26/19 11:22 alcohol and benzo withdrawal Plan: valium regimen
[2019-05-26 16:56] LABS: URINE APPEARANCE CLEAR; URINE BILIRUBIN NEGATIVE (NEGATIVE); URINE COLOR YELLOW; URINE GLUCOSE (UA) NEGATIVE (NEGATIVE); URINE KETONE NEGATIVE (NEGATIVE); URINE LEUK ESTERASE NEGATIVE (NEGATIVE); URINE NITRITE NEGATIVE (NEGATIVE); URINE PROTEIN NEGATIVE (NEGATIVE); URINE UROBILINOGEN 0.2 mg/dL (0.2-1.0)
[2019-05-26] MEDS: MELATONIN 5 MG TABLETS PO PRN (22:09)
[2019-05-26] MEDS: THIAMINE HCL 100 MG TABLET (FP) PO SCH (22:09)
[2019-05-27] MEDS ORDERED: METHADONE HCL 10 MG TABLET ONE (03:42)
[2019-05-27] MEDS ORDERED: METHADONE HCL 40 MG DISPERSABLE TABLET ONE (03:42)
[2019-05-27] MEDS ORDERED: diazePAM 5 MG TABLET PO ONE (06:00)
[2019-05-27] MEDS: METHADONE 80 MG, METHADONE 10 MG PO SCH (06:15)
[2019-05-27] MEDS: NICOTINE 21 MG/24 HOURS TOPICAL PATCH TD SCH (10:15)
[2019-05-27] MEDS: PANTOPRAZOLE 40 MG TABLET (FP) PO SCH (10:15)
[2019-05-27] MEDS: ENALAPRIL MALEATE 10 MG TABLET (FP) PO SCH (10:15)
[2019-05-27] MEDS: PRENATAL VITAMINS W/ FOLIC ACID TABLET (FP) PO SCH (10:15)
[2019-05-27] MEDS: TAMSULOSIN HCL 0.4 MG CAP PO SCH (10:15)
[2019-05-27] MEDS: [UNRECOGNIZED DRUG - OTHER] PO SCH (10:15)
[2019-05-27 13:10] VITALS: BP 126/77; PULSE 63; TEMP 98.4
--- NOTE | 2019-05-27 13:24 | DS ---
[facility] Detox Discharge Summary Admission Date: 05/24/19 Discharge Date: 05/27/19 - History Present History: Alcohol Dependence Pertinent Past History: Pt was admitted for alcohol detox on 05/24. Completed detox. Going to rehab here today. Pt has h/o HIV, BPH, HTN, GERD, OUD on methadone. - Physical Exam Results Vital Signs: Vital Signs Temperature 98.4 F 05/27/19 13:09 Pulse Rate 63 05/27/19 13:09 Respiratory Rate 18 05/27/19 13:09 Blood Pressure 126/77 05/27/19 13:09 O2 Sat by Pulse Oximetry (%) - Treatment Hospital Course: Detox Protocol Followed, Detoxed Safely, Responded well, Discharged Condition Good, Rehab Referral Accepted - Medication Discharge Medications: Ambulatory Orders Clotrimazole 15 gm TP BID 02/04/17 Esomeprazole Magnesium 40 mg PO DAILY 02/04/17 Multivitamins [Multivit ([facility] Formulary)] 1 tab PO DAILY 02/04/17 Tamsulosin HCl [Flomax -] 2 cap PO DAILY 02/04/17 Bictegrav/Emtricit/Tenofov Ala [Biktarvy 50-200-25 mg Tablet] 50 mg PO DAILY Lisinopril [Prinivil] 10 mg PO BID #14 tablet 05/26/19
== END 2019-05-27 14:48 | disposition other institution (70) | DRG 773 ==
LOC: YASAS 14:45 → Y3N 22:46
PROVIDERS: ADMIT Allergy & Immunology; ATTEND Allergy & Immunology
PROC: HZ2ZZZZ Detoxification Services for Substance Abuse Treatment (ICD-10-PCS; principal; 2019-05-24)
DX: F10.230 Alcohol dependence with withdrawal, uncomplicated (principal); F11.20 Opioid dependence, uncomplicated; F13.230 Sedative, hypnotic or anxiolytic dependence with withdrawal, uncomplicated; F14.20 Cocaine dependence, uncomplicated; F17.210 Nicotine dependence, cigarettes, uncomplicated; F19.24 Other psychoactive substance dependence with psychoactive substance-induced mood disorder; F32.9 Major depressive disorder, single episode, unspecified; G47.00 Insomnia, unspecified; Z21 Asymptomatic human immunodeficiency virus [HIV] infection status; K21.9 Gastro-esophageal reflux disease without esophagitis; N40.0 Benign prostatic hyperplasia without lower urinary tract symptoms; Z86.19 Personal history of other infectious and parasitic diseases; Z91.011 Allergy to milk products; Z56.0 Unemployment, unspecified
CPT/HCPCS: 36415; 80053; 81003; 84132; 85027; 86593; 93005; 93010

== ENCOUNTER 2019-05-27 14:54 | Inpatient (IN) | payer OTHER ==
[2019-05-27] MEDS ORDERED: P-EPHED 60MG/TRIPROLIDI 2.5MG TABLET PO PRN (15:49)
[2019-05-27] MEDS ORDERED: MAGNESIUM CITRATE 300 ML BOTTLE PO PRN (15:49)
[2019-05-27] MEDS ORDERED: NICOTINE POLACRILEX 2 MG GUM BUC PRN (15:49)
[2019-05-27] MEDS ORDERED: IBUPROFEN 400 MG TABLET (FP) PO PRN (15:49)
[2019-05-27] MEDS ORDERED: guaiFENesin 200 MG/10 ML 10 ML UNIT-DOSE CUPS PO PRN (15:49)
[2019-05-27] MEDS ORDERED: hydrOXYzine PAMOATE 25 MG CAPSULE (FP) PO PRN (15:49)
[2019-05-27] MEDS ORDERED: MENTHOL/PHENOL 1 EACH UD MM PRN (15:49)
[2019-05-27] MEDS ORDERED: MAGNESIUM HYDROX 2400MG/30ML ORAL SUSPENSION 30 ML CUP PO PRN (15:49)
--- NOTE | 2019-05-27 15:49 | HP ---
[facility] Rehab Assess/Revision - Admission History Admitted to Rehab from: [facility] Date of Admission to Rehab: 05/27/2019 - Vital signs Vital Signs: Vital Signs Period Temp Pulse Resp BP Sys/Leiva Pulse Ox Last 24 Hr 98.0 F 66 18 129/71 - Findings Detox History & Physical reviewed: Yes Concur with findings: Yes Comments/Additional Findings: Pt was admitted to detox on 05/24 for alcohol and benzo detox with Valium. He completed detox and transferred to rehab on 05/27. Pt has a h/o HTN, HIV, OUD on methadone, BPH, GERD. Inpatient Rehab Admission - Rehab Decision to Admit Inpatient rehab admission?: Yes - Initial Determination Are CD services needed?: Yes Free of communicable disease: Yes Not in need of hospitalization: Yes - Rehab Admission Criteria Previous failed treatment: Yes Poor recovery environment: Yes Comorbidities: Yes Lacks judgement: Yes Patient is meeting Inpatient Rehab admission criteria:: Yes
--- NOTE | 2019-05-27 16:00 | PN ---
[facility] Progress Note Note: Pt is a 63 y/o male with hx of alcohol,xanax,cocaine use disorder admitted to rehab from detox [address] [place] [address]. Pt reports he has a primary care doctor, Dr Debi Harrell at [facility] on [address] Pt reports he is on Methadone 90 mg po daily with [facility] in [facility]. PMHx:HIV+ BPH HTN GERD Psych Hx:Denies Vital Signs - 24 hr 05/27/19 15:29 Temperature 98.0 F Pulse Rate 66 Respiratory 18 Rate Blood Pressure 129/71 Alert o x 3,denies s/h/i nad oob ambulating with steady gait cardiac:s1 s2,rrr lungs:cta, mamadou. extremities/skin:no edema,skin intact. A/P new rehab pt s/p detox Maintain safety.
[2019-05-27] MEDS: MAG HYDROX/AL HYDROX/SIMETH 30 ML UNIT-DOSE CUP PO PRN (16:46)
[2019-05-27] MEDS ORDERED: cloNIDine HCL 0.1 MG TABLET PO ONE (21:27)
--- NOTE | 2019-05-27 21:31 | PN ---
[facility] Progress Note Note: Patient's blood pressure is B/P 192/109 and 186/109 respectively. Patient is asymptomatic Vital Signs - 8 hr 05/27/19 05/27/19 05/27/19 15:29 20:45 20:50 Temperature 98.0 F Pulse Rate 66 74 69 Respiratory 18 Rate Blood Pressure 129/71 192/109 H 186/109 H Action: Clonidine 0.1mg tablet oral ordered
[2019-05-27] MEDS: THIAMINE HCL 100 MG TABLET (FP) PO SCH (21:34)
[2019-05-27] MEDS: ENALAPRIL MALEATE 10 MG TABLET (FP) PO SCH (21:34)
[2019-05-28] MEDS ORDERED: METHADONE HCL 10 MG TABLET ONE (04:27)
[2019-05-28] MEDS ORDERED: METHADONE HCL 40 MG DISPERSABLE TABLET ONE (04:27)
[2019-05-28] MEDS ORDERED: METHADONE HCL 10 MG TABLET PO SCH (06:00)
[2019-05-28] MEDS: METHADONE 80 MG, METHADONE 10 MG PO SCH (06:14)
[2019-05-28] MEDS: PANTOPRAZOLE 40 MG TABLET (FP) PO SCH (10:18)
[2019-05-28] MEDS: TAMSULOSIN HCL 0.4 MG CAP PO SCH (10:18)
[2019-05-28] MEDS: ENALAPRIL MALEATE 10 MG TABLET (FP) PO SCH ×2 (10:18→21:53)
[2019-05-28] MEDS: PRENATAL VITAMINS W/ FOLIC ACID TABLET (FP) PO SCH (10:18)
[2019-05-28] MEDS: BICTEGRAV/EMTRICIT/TENOFOV (BIKTARVY) 50-200-25 MG TABLET PO SCH (10:18)
[2019-05-28] MEDS: NICOTINE 21 MG/24 HOURS TOPICAL PATCH TD SCH (10:20)
[2019-05-28] MEDS: ACETAMINOPHEN 325 MG TABLET (FP) PO PRN ×2 (10:41→21:53)
[2019-05-28] MEDS: MAG HYDROX/AL HYDROX/SIMETH 30 ML UNIT-DOSE CUP PO PRN (10:43)
[2019-05-28] MEDS: LOPERAMIDE HCL 2 MG CAPSULE PO PRN (18:17)
[2019-05-28] MEDS: THIAMINE HCL 100 MG TABLET (FP) PO SCH (21:53)
[2019-05-29] MEDS: LOPERAMIDE HCL 2 MG CAPSULE PO PRN ×2 (03:33→23:25)
[2019-05-29] MEDS ORDERED: METHADONE HCL 10 MG TABLET ONE (04:13)
[2019-05-29] MEDS ORDERED: METHADONE HCL 40 MG DISPERSABLE TABLET ONE (04:13)
[2019-05-29] MEDS: METHADONE 80 MG, METHADONE 10 MG PO SCH (06:29)
[2019-05-29] MEDS: PRENATAL VITAMINS W/ FOLIC ACID TABLET (FP) PO SCH (10:11)
[2019-05-29] MEDS: PANTOPRAZOLE 40 MG TABLET (FP) PO SCH (10:11)
[2019-05-29] MEDS: BICTEGRAV/EMTRICIT/TENOFOV (BIKTARVY) 50-200-25 MG TABLET PO SCH (10:11)
[2019-05-29] MEDS: TAMSULOSIN HCL 0.4 MG CAP PO SCH (10:11)
[2019-05-29] MEDS: ENALAPRIL MALEATE 10 MG TABLET (FP) PO SCH ×2 (10:11→22:10)
[2019-05-29] MEDS: NICOTINE 21 MG/24 HOURS TOPICAL PATCH TD SCH (10:11)
[2019-05-29] MEDS: THIAMINE HCL 100 MG TABLET (FP) PO SCH (22:11)
[2019-05-30] MEDS ORDERED: METHADONE HCL 40 MG DISPERSABLE TABLET ONE (05:02)
[2019-05-30] MEDS ORDERED: METHADONE HCL 10 MG TABLET ONE (05:02)
[2019-05-30] MEDS: METHADONE 80 MG, METHADONE 10 MG PO SCH (06:44)
[2019-05-30] MEDS: ACETAMINOPHEN 325 MG TABLET (FP) PO PRN (07:46)
--- NOTE | 2019-05-30 10:19 | PN ---
[facility] Progress Note Note: PATIENT SEEN FOR C/O DIARRHEA X 3 DAYS, WITH 3-4 EPISODES OF LOOSE STOOL. PATIENT STATES STOOL HAS FOUL SMELL AND THAT IMMODIUM INEFFECTIVE FOR RELIEF. PATIENT DENIES FEVER, ABDOMINAL PAIN AND NAUSEA/VOMITING. PATIENT ALSO C/O "WHITE STUFF ON TONGUE". HAS HX OF HIV+ AND ETOH/SEDATIVE DEPENDENCE. Vital Signs Temperature 97.6 F 05/29/19 06:55 Pulse Rate 62 05/29/19 09:08 Respiratory Rate 18 05/30/19 07:49 Blood Pressure 134/75 05/29/19 09:08 O2 Sat by Pulse Oximetry (%) PE: ALERT AND ORIENTED X 3 SKIN WARM AND DRY ORAL MUCOSA PINK, TONGUE MIDLINE, +THRUSH ON TONGUE GI NT, ND EXT FULL ROM, AMB AD SLIM NO TREMORS A/P ORAL THRUSH DIARRHEA WILL START NYSTATIN S/S STOOL FOR CDIFFX 1 AFTER STOOL COLLECTION, MEDICATE WITH ONE DOSE OF LOMOTIL MONITOR CLINICALLY
[2019-05-30] MEDS: PRENATAL VITAMINS W/ FOLIC ACID TABLET (FP) PO SCH (10:32)
[2019-05-30] MEDS: BICTEGRAV/EMTRICIT/TENOFOV (BIKTARVY) 50-200-25 MG TABLET PO SCH (10:32)
[2019-05-30] MEDS: PANTOPRAZOLE 40 MG TABLET (FP) PO SCH (10:32)
[2019-05-30] MEDS: TAMSULOSIN HCL 0.4 MG CAP PO SCH (10:32)
[2019-05-30] MEDS: NICOTINE 21 MG/24 HOURS TOPICAL PATCH TD SCH (10:32)
[2019-05-30] MEDS: ENALAPRIL MALEATE 10 MG TABLET (FP) PO SCH ×2 (10:33→21:21)
[2019-05-30] MEDS ORDERED: DIPHENOXYLATE 2.5/ATROPINE.025 1 COMBO TABLET PO ONE (11:30)
[2019-05-30] MEDS: NYSTATIN 500,000 UNITS/5 ML SUSPENSION PO SCH ×3 (13:02→23:28)
[2019-05-30] MEDS: MELATONIN 5 MG TABLETS PO PRN (21:21)
[2019-05-30] MEDS: THIAMINE HCL 100 MG TABLET (FP) PO SCH (21:22)
[2019-05-30] MEDS: MAG HYDROX/AL HYDROX/SIMETH 30 ML UNIT-DOSE CUP PO PRN (23:27)
[2019-05-31] MEDS ORDERED: METHADONE HCL 40 MG DISPERSABLE TABLET ONE (06:13)
[2019-05-31] MEDS ORDERED: METHADONE HCL 10 MG TABLET ONE (06:13)
[2019-05-31] MEDS: METHADONE 80 MG, METHADONE 10 MG PO SCH (06:34)
[2019-05-31] MEDS: NYSTATIN 500,000 UNITS/5 ML SUSPENSION PO SCH ×3 (06:36→17:54)
[2019-05-31] MEDS: TAMSULOSIN HCL 0.4 MG CAP PO SCH (10:20)
[2019-05-31] MEDS: PRENATAL VITAMINS W/ FOLIC ACID TABLET (FP) PO SCH (10:20)
[2019-05-31] MEDS: BICTEGRAV/EMTRICIT/TENOFOV (BIKTARVY) 50-200-25 MG TABLET PO SCH (10:20)
[2019-05-31] MEDS: ENALAPRIL MALEATE 10 MG TABLET (FP) PO SCH ×2 (10:20→21:24)
[2019-05-31] MEDS: PANTOPRAZOLE 40 MG TABLET (FP) PO SCH (10:20)
[2019-05-31] MEDS: NICOTINE 21 MG/24 HOURS TOPICAL PATCH TD SCH (10:21)
--- NOTE | 2019-05-31 10:21 | PN ---
S Progress Note (SOAP) Subjective: Patient continues to complain of diarrhea. HIV+, denies receiving abx for PJP or thrush or any other problem from his HIV provider prior to admission. Denies abd pain, fever, nausea, vomiting. Reports CD4 count is ~200 and that he is undetectable, received nystatin S & S for thrush, and CDif was ordered and pending. States the diarrhea is foul smelling; states that the lomitil worked and immodium did not. However, he did not take the immodium as ordered. Reports he took Pepto-Bismol in the past for gas and diarrhea and it worked. Objective: 05/31/19 10:22 Vital Signs (72 hours) 05/29/19 05/29/19 05/29/19 00:30 06:55 09:08 Temperature 97.6 F Pulse Rate 66 62 Respiratory 18 18 Rate Blood Pressure 131/90 134/75 05/30/19 05/30/19 05/30/19 03:30 07:49 21:00 Temperature Pulse Rate 61 Respiratory 18 18 18 Rate Blood Pressure 178/91 H 05/31/19 05/31/19 05/31/19 00:30 03:30 06:50 Temperature 97.6 F Pulse Rate 61 Respiratory 18 18 18 Rate Blood Pressure 130/69 Assessment: diarrhea 05/31/19 10:22 Plan: Will give Pepto-Bismol pending C-DIf results.
[2019-05-31] MEDS: BISMUTH SUBSALICYLATE 262 MG/15 ML BTL PO PRN ×2 (13:00→17:53)
[2019-05-31] MEDS: THIAMINE HCL 100 MG TABLET (FP) PO SCH (21:24)
[2019-05-31] MEDS: MELATONIN 5 MG TABLETS PO PRN (21:25)
[2019-05-31] MEDS: ACETAMINOPHEN 325 MG TABLET (FP) PO PRN (21:25)
[2019-06-01] MEDS: NYSTATIN 500,000 UNITS/5 ML SUSPENSION PO SCH ×4 (02:31→18:23)
[2019-06-01] MEDS ORDERED: METHADONE HCL 40 MG DISPERSABLE TABLET ONE (04:25)
[2019-06-01] MEDS ORDERED: METHADONE HCL 10 MG TABLET ONE (04:25)
[2019-06-01] MEDS: METHADONE 80 MG, METHADONE 10 MG PO SCH (06:39)
[2019-06-01] MEDS: ENALAPRIL MALEATE 10 MG TABLET (FP) PO SCH ×2 (10:10→21:23)
[2019-06-01] MEDS: TAMSULOSIN HCL 0.4 MG CAP PO SCH (10:10)
[2019-06-01] MEDS: PRENATAL VITAMINS W/ FOLIC ACID TABLET (FP) PO SCH (10:11)
[2019-06-01] MEDS: PANTOPRAZOLE 40 MG TABLET (FP) PO SCH (10:12)
[2019-06-01] MEDS: BICTEGRAV/EMTRICIT/TENOFOV (BIKTARVY) 50-200-25 MG TABLET PO SCH (10:13)
[2019-06-01] MEDS: NICOTINE 21 MG/24 HOURS TOPICAL PATCH TD SCH (10:14)
[2019-06-01] MEDS: BISMUTH SUBSALICYLATE 262 MG/15 ML BTL PO PRN (14:08)
[2019-06-01] MEDS: ACETAMINOPHEN 325 MG TABLET (FP) PO PRN (16:31)
[2019-06-01] MEDS: MAG HYDROX/AL HYDROX/SIMETH 30 ML UNIT-DOSE CUP PO PRN (21:24)
[2019-06-01] MEDS: THIAMINE HCL 100 MG TABLET (FP) PO SCH (21:24)
[2019-06-01] MEDS: MELATONIN 5 MG TABLETS PO PRN (22:21)
[2019-06-02] MEDS: NYSTATIN 500,000 UNITS/5 ML SUSPENSION PO SCH ×3 (02:38→13:08)
[2019-06-02] MEDS ORDERED: METHADONE HCL 10 MG TABLET ONE (06:24)
[2019-06-02] MEDS ORDERED: METHADONE HCL 40 MG DISPERSABLE TABLET ONE (06:25)
[2019-06-02] MEDS: METHADONE 80 MG, METHADONE 10 MG PO SCH (07:15)
[2019-06-02 07:23] VITALS: TEMP 97.9
[2019-06-02] MEDS: TAMSULOSIN HCL 0.4 MG CAP PO SCH (09:36)
[2019-06-02] MEDS: PRENATAL VITAMINS W/ FOLIC ACID TABLET (FP) PO SCH (09:36)
[2019-06-02] MEDS: NICOTINE 21 MG/24 HOURS TOPICAL PATCH TD SCH (09:36)
[2019-06-02] MEDS: BICTEGRAV/EMTRICIT/TENOFOV (BIKTARVY) 50-200-25 MG TABLET PO SCH (09:36)
[2019-06-02] MEDS: ENALAPRIL MALEATE 10 MG TABLET (FP) PO SCH (09:37)
[2019-06-02] MEDS: PANTOPRAZOLE 40 MG TABLET (FP) PO SCH (09:37)
[2019-06-02 10:57] VITALS: BP 125/68; PULSE 62
--- NOTE | 2019-06-02 13:44 | DS ---
[facility] Rehab Discharge Summary - [facility] Rehab Discharge Summary Admission Date: 05/27/19 Discharge Date: 06/02/19 - History Present History: Alcohol dependence, Cocaine dependence, Opioid dependence, Sedative dependence Pertinent Past History: HERE FOR ALCOHOL Use Treatment, SELF REFERRED. KNOWN TO PROGRAM. LAST HERE 2016. MAINTAINED SOBRIETY FOR ABOUT 6 MONTHS PRIOR TO RELAPSING. DENIES ANY SIGNIFICANT PERIOD OF DRUG FREE TIME SINCE. HE REPORTS DAILY ALCOHOL INTAKE. LAST DRINK THIS MORNING. 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 REPORTS HX/O SEIZURES LAST EPISODE 01/2019 R/T ALCOHOL AND BENZO WITHDRAWAL. CLIENT REPORTS BENZO ABUSE WELL. REPORTS DAILY USE ON NON RX XANAX. LIVES ALONE, UNEMPLOYED, DENIES LEGALS - Discharge Physical Exam Vital Signs: Vital Signs Temperature 97.9 F 06/02/19 07:22 Pulse Rate 62 06/02/19 10:00 Respiratory Rate 18 06/02/19 07:22 Blood Pressure 125/68 06/02/19 10:00 O2 Sat by Pulse Oximetry (%) Pertinent Admission Physical Exam Findings: General Appearance: No apparent distress HEENTM: Normocephalic, GRACIELA,dentures Respiratory: Lungs Clear, Neck: Supple, Trachea in good position Cardiology: S1, S2 Abdominal: +Bowel Sounds, Non Tender, Soft Musculoskeletal: full range of Motion, Gait Steady Neurological: CN 2-12 intact, Motor Strength 5/5 - Treatment Discharge Condition: Discharge condition good (Medically stable for discharge; refusing further treatment. No outpatient referral for patient because of early discharge, he will attend AA meetings.) Hospital Course: patient attended groups, had 1:1 with his counselor, was seen by psychiatric service. He was seen by the medical service for diarrhea and a c-diff was ordered, but was lost/discarded (?) and a repeat was requested. However patient refuse to provide sample. In addition, he refused any medication that would reduce the frequency of BMs or the explanation that if he had c-diff, an anti- diarrheal medication may be contra-indicated - Medication Discharge Medications: Ambulatory Orders Clotrimazole 15 gm TP BID 02/04/17 Esomeprazole Magnesium 40 mg PO DAILY 02/04/17 Multivitamins [Multivit ([facility] Formulary)] 1 tab PO DAILY 02/04/17 Tamsulosin HCl [Flomax -] 2 cap PO DAILY 02/04/17 Bictegrav/Emtricit/Tenofov Ala [Biktarvy 50-200-25 mg Tablet] 50 mg PO DAILY Lisinopril [Prinivil] 10 mg PO BID #14 tablet 05/26/19 - Medication-Assisted Treatment (MAT) Medication-Assisted Treatment (MAT): No - Discharge Instructions Diet, activity, other medical instructions: Diet: as tolerated Activity:as tolerated Other medical instructions: Please follow up with AA meetings and make an appointment with your primary care provider within 2 weeks of discharge. - Diagnosis (1) Alcohol dependence with uncomplicated withdrawal Current Visit: No Status: Chronic (2) Cocaine dependence, uncomplicated Current Visit: No Status: Chronic - AMA Did Patient Leave Against Medical Advice: No
== END 2019-06-02 14:10 | disposition home or self-care (01) | DRG 772 ==
LOC: YASAS 14:54 → Y5N 14:55
PROVIDERS: ADMIT Neuromusculoskeletal Medicine & OMM; ATTEND Neuromusculoskeletal Medicine & OMM
PROC: HZ42ZZZ Group Counseling for Substance Abuse Treatment, Cognitive-Behavioral (ICD-10-PCS; principal; 2019-05-27)
DX: F10.20 Alcohol dependence, uncomplicated (principal); F11.20 Opioid dependence, uncomplicated; F13.20 Sedative, hypnotic or anxiolytic dependence, uncomplicated; F14.20 Cocaine dependence, uncomplicated; Z21 Asymptomatic human immunodeficiency virus [HIV] infection status; R19.7 Diarrhea, unspecified; B37.0 Candidal stomatitis; I10 Essential (primary) hypertension; K21.9 Gastro-esophageal reflux disease without esophagitis; N40.0 Benign prostatic hyperplasia without lower urinary tract symptoms
CPT/HCPCS: J0735